=== PATIENT | male | born 1965 | race Caucasian/White ===

== ENCOUNTER → 2018-04-10 | Outpatient (CLI) | payer BC ==
[2018-04-10 18:11] LABS: BASOPHILS ABSOLUTE AUTO 0.05 K/mm3 (0.00-0.23); BASOPHILS PERCENT AUTO 1 % (0-2); EOSINOPHILS ABSOLUTE AUTO 0.12 K/mm3 (0.00-0.68); EOSINOPHILS PERCENT AUTO 2 % (0-6); Hematocrit 48.9 % (37.0-53.0); Hemoglobin 15.6 g/dL (13.5-17.5); IMMATURE GRAN ABSOLUTE AUTO 0.01 K/mm3 (0.00-0.10); IMMATURE GRAN PERCENT AUTO 0 % (0-1); LYMPHOCYTES ABSOLUTE AUTO 2.48 K/mm3 (0.84-5.20); LYMPHOCYTES PERCENT AUTO 31 % (21-46); MONOCYTES ABSOLUTE AUTO 0.56 K/mm3 (0.16-1.47); MONOCYTES PERCENT AUTO 7 % (4-13); Mean Corpuscular HGB 27.8 pg (26.0-34.0); Mean Corpuscular HGB Conc 31.9 g/dL (31.5-36.5); Mean Corpuscular Volume 87 fL (80-100); Mean Platelet Volume 10.1 fL (9.1-12.4); NEUTROPHILS ABSOLUTE AUTO 4.76 K/mm3 (1.96-9.15); NEUTROPHILS PERCENT AUTO 60 % (41-73); Platelet Count 255 K/mm3 (150-400); RDW Coefficient Variation 13.2 % (11.7-14.2); RDW Standard Deviation 42.6 fL (35.1-46.3); Red Blood Cell Count 5.61 M/mm3 (4.30-5.90); White Blood Cell Count 7.98 K/mm3 (4.00-11.30)
[2018-04-10 18:47] LABS: Albumin/Globulin Ratio 1.1 (0.8-1.8); Alk Phos 101 U/L (50-136); Anion Gap 8 mmol/L (6-16); Aspartate Aminotrans (AST/SGOT 20 U/L (12-37); Bilirubin, Total 0.5 mg/dL (0.1-1.0); Blood Urea Nitrogen 11 mg/dL (8-24); CHOL/HDL RATIO 7.8; CO2, Blood 28 mmol/L (21-32); Chloride, Blood 107 mmol/L (98-108); Cholesterol 250 mg/dL (50-200); Free Thyroxine 1.03 ng/dL (0.70-1.60); Globulin, Blood 3.5 g/dL (2.2-4.0); Glucose, Blood 106 mg/dL (70-99); HDL Cholesterol 32 mg/dL (>39); LDL/HDL RATIO 5.8; Low Density Lipoprotein Chol 185 mg/dL (0-110); Potassium, Blood 4.3 mmol/L (3.5-5.5); Sodium, Blood 143 mmol/L (136-145); Total Protein, Blood 7.5 g/dL (6.4-8.2); Triglycerides 163 mg/dL (30-160); Very Low Density Lipoprot Chol 32 mg/dL (6-32)
[2018-04-10 18:57] LABS: Alanine Aminotransfer (ALT/SGP 33 U/L (12-78); Bun/Creatinine Ratio 14.3 (12.0-20.0); Creatinine, Blood 0.77 mg/dL (0.60-1.20); Glomerular Filtration Rate >60 (60-); PSA, %Free 18.5 %
== END ==
LOC: LAB SHORT 12:11
PROVIDERS: Nurse Practitioner Adult Health
DX: Z12.5 Encounter for screening for malignant neoplasm of prostate (principal); E01.0 Iodine-deficiency related diffuse (endemic) goiter; E11.40 Type 2 diabetes mellitus with diabetic neuropathy, unspecified; E11.65 Type 2 diabetes mellitus with hyperglycemia; E78.5 Hyperlipidemia, unspecified; R22.1 Localized swelling, mass and lump, neck
CPT/HCPCS: 80053; 80061; 84153; 84154; 84439; 84443; 85025

== ENCOUNTER → 2018-04-20 | Outpatient (CLI) | payer BC | END | disposition home or self-care (01) | LOC: LAB SHORT 13:40 → LAB 13:40 | DX: K21.9 Gastro-esophageal reflux disease without esophagitis (principal) | CPT/HCPCS: 87338 ==

== ENCOUNTER → 2020-09-05 | Outpatient (CLI) | payer BC ==
[~2020-09-05] MED LIST: ATOR20 PO; METF500 PO; Norco 5-325 Ta1 EACH PO; OMEP20ER PO
[2020-09-05 14:36] LABS: BASOPHILS ABSOLUTE AUTO 0.07 K/mm3 (0.00-0.23); BASOPHILS PERCENT AUTO 1 % (0-2); EOSINOPHILS ABSOLUTE AUTO 0.16 K/mm3 (0.00-0.68); EOSINOPHILS PERCENT AUTO 2 % (0-6); Hematocrit 44.3 % (37.0-53.0); Hemoglobin 14.7 g/dL (13.5-17.5); IMMATURE GRAN ABSOLUTE AUTO 0.02 K/mm3 (0.00-0.10); IMMATURE GRAN PERCENT AUTO 0 % (0-1); LYMPHOCYTES ABSOLUTE AUTO 2.72 K/mm3 (0.84-5.20); LYMPHOCYTES PERCENT AUTO 25 % (21-46); MONOCYTES ABSOLUTE AUTO 0.83 K/mm3 (0.16-1.47); MONOCYTES PERCENT AUTO 8 % (4-13); Mean Corpuscular HGB 26.5 pg (26.0-34.0); Mean Corpuscular HGB Conc 33.2 g/dL (31.5-36.5); Mean Corpuscular Volume 80 fL (80-100); Mean Platelet Volume 9.7 fL (9.1-12.4); NEUTROPHILS ABSOLUTE AUTO 6.97 K/mm3 (1.96-9.15); NEUTROPHILS PERCENT AUTO 65 % (41-73); Platelet Count 337 K/mm3 (150-400); RDW Coefficient Variation 13.8 % (11.7-14.2); RDW Standard Deviation 39.9 fL (35.1-46.3); Red Blood Cell Count 5.54 M/mm3 (4.30-5.90); White Blood Cell Count 10.77 K/mm3 (4.00-11.30)
[2020-09-05 14:45] LABS: Alanine Aminotransfer (ALT/SGP 28 U/L (12-78); Albumin, Blood 3.9 g/dL (3.4-5.0); Alk Phos 113 U/L (40-126); Anion Gap 10 mmol/L (6-16); Aspartate Aminotrans (AST/SGOT 17 U/L (12-37); Bilirubin, Total 0.5 mg/dL (0.1-1.0); Blood Urea Nitrogen 15 mg/dL (8-24); CO2, Blood 27 mmol/L (21-32); Calcium, Blood 9.2 mg/dL (8.5-10.1); Chloride, Blood 101 mmol/L (98-108); Creatinine, Blood 0.79 mg/dL (0.60-1.20); Globulin, Blood 4.1 g/dL (2.2-4.0); Glomerular Filtration Rate >60 (60-); Glucose, Blood 102 mg/dL (70-99); Potassium, Blood 3.8 mmol/L (3.5-5.5); Sodium, Blood 138 mmol/L (136-145)
== END | disposition home or self-care (01) ==
LOC: LAB SHORT 14:29 → PLD 14:29
PROVIDERS: Physician Assistant
DX: R10.32 Left lower quadrant pain (principal)
CPT/HCPCS: 80053; 85025

== ENCOUNTER 2020-09-26 12:22 | Inpatient (IN) | payer BC ==
[~2020-09-26] VITALS: Ht 167.6 cm; Wt 97.4 kg
[2020-09-26] MEDS ORDERED: ATOR20 PO (12:57)
[2020-09-26] MEDS ORDERED: METF500 PO (12:57)
[2020-09-26] MEDS ORDERED: OMEP20ER PO (12:57)
[2020-09-26 13:03] LABS: BASOPHILS ABSOLUTE AUTO 0.08 K/mm3 (0.00-0.23); BASOPHILS PERCENT AUTO 1 % (0-2); EOSINOPHILS ABSOLUTE AUTO 0.06 K/mm3 (0.00-0.68); EOSINOPHILS PERCENT AUTO 0 % (0-6); Hematocrit 49.8 % (37.0-53.0); Hemoglobin 15.9 g/dL (13.5-17.5); IMMATURE GRAN ABSOLUTE AUTO 0.05 K/mm3 (0.00-0.10); IMMATURE GRAN PERCENT AUTO 0 % (0-1); LYMPHOCYTES ABSOLUTE AUTO 2.69 K/mm3 (0.84-5.20); LYMPHOCYTES PERCENT AUTO 17 % (21-46); MONOCYTES ABSOLUTE AUTO 1.37 K/mm3 (0.16-1.47); MONOCYTES PERCENT AUTO 9 % (4-13); Mean Corpuscular HGB 25.7 pg (26.0-34.0); Mean Corpuscular HGB Conc 31.9 g/dL (31.5-36.5); Mean Corpuscular Volume 81 fL (80-100); Mean Platelet Volume 9.3 fL (9.1-12.4); NEUTROPHILS ABSOLUTE AUTO 11.79 K/mm3 (1.96-9.15); NEUTROPHILS PERCENT AUTO 74 % (41-73); Platelet Count 466 K/mm3 (150-400); RDW Coefficient Variation 14.2 % (11.7-14.2); RDW Standard Deviation 41.1 fL (35.1-46.3); Red Blood Cell Count 6.19 M/mm3 (4.30-5.90); White Blood Cell Count 16.04 K/mm3 (4.00-11.30)
[2020-09-26 13:24] LABS: Alanine Aminotransfer (ALT/SGP 37 U/L (12-78); Albumin, Blood 3.7 g/dL (3.4-5.0); Albumin/Globulin Ratio 0.8 (0.8-1.8); Alk Phos 131 U/L (50-136); Anion Gap 8 mmol/L (6-16); Aspartate Aminotrans (AST/SGOT 23 U/L (12-37); Bilirubin, Total 0.8 mg/dL (0.1-1.0); Blood Urea Nitrogen 28 mg/dL (8-24); CO2, Blood 29 mmol/L (21-32); Calcium, Blood 10.3 mg/dL (8.5-10.1); Chloride, Blood 100 mmol/L (98-108); Creatinine, Blood 0.88 mg/dL (0.60-1.20); Globulin, Blood 4.5 g/dL (2.2-4.0); Glomerular Filtration Rate >60 (60-); Glucose, Blood 159 mg/dL (70-99); Potassium, Blood 3.9 mmol/L (3.5-5.5); Sodium, Blood 137 mmol/L (136-145); Total Protein, Blood 8.2 g/dL (6.4-8.2)
--- NOTE | 2020-09-27 04:29 | NUR ---
SHIFT SUMMARY AA0X4, NO ACUTE CHANGES SINCE ARRIVAL TO UNIT. PT RESTING IN BED DENIES PAIN AND NAUSEA. NPO SINCE ARRIVAL FOR PLANNED PROCEDURE TODAY. NG TUBE PATENT AND DRAINING WITH MINMAL BROWN OUTPUT. PTS WILL BE HERE IN THE AM TO HELP WITH UNDERSTANDING SURGICAL PROCEDURES.
[2020-09-27 04:48] LABS: Influenza A, PCR Negative (NEGATIVE); Influenza B, PCR Negative (NEGATIVE); Resp Syncytial Virus, PCR Negative (NEGATIVE); SARS-Cov-2 (COVID-19) PCR, MMC Negative (NEGATIVE)
[2020-09-27 05:14] LABS: BASOPHILS ABSOLUTE AUTO 0.09 K/mm3 (0.00-0.23); BASOPHILS PERCENT AUTO 1 % (0-2); EOSINOPHILS ABSOLUTE AUTO 0.06 K/mm3 (0.00-0.68); EOSINOPHILS PERCENT AUTO 1 % (0-6); Hematocrit 45.9 % (37.0-53.0); Hemoglobin 14.5 g/dL (13.5-17.5); IMMATURE GRAN ABSOLUTE AUTO 0.02 K/mm3 (0.00-0.10); IMMATURE GRAN PERCENT AUTO 0 % (0-1); LYMPHOCYTES ABSOLUTE AUTO 1.44 K/mm3 (0.84-5.20); LYMPHOCYTES PERCENT AUTO 15 % (21-46); MONOCYTES ABSOLUTE AUTO 0.91 K/mm3 (0.16-1.47); MONOCYTES PERCENT AUTO 9 % (4-13); Mean Corpuscular HGB 25.8 pg (26.0-34.0); Mean Corpuscular HGB Conc 31.6 g/dL (31.5-36.5); Mean Corpuscular Volume 82 fL (80-100); Mean Platelet Volume 9.4 fL (9.1-12.4); NEUTROPHILS ABSOLUTE AUTO 7.12 K/mm3 (1.96-9.15); NEUTROPHILS PERCENT AUTO 74 % (41-73); Platelet Count 359 K/mm3 (150-400); RDW Coefficient Variation 14.3 % (11.7-14.2); RDW Standard Deviation 42.6 fL (35.1-46.3); Red Blood Cell Count 5.61 M/mm3 (4.30-5.90); White Blood Cell Count 9.64 K/mm3 (4.00-11.30)
[2020-09-27 05:45] LABS: Anion Gap 6 mmol/L (6-16); Blood Urea Nitrogen 21 mg/dL (8-24); Bun/Creatinine Ratio 23.8 (12.0-20.0); CO2, Blood 31 mmol/L (21-32); Calcium, Blood 8.9 mg/dL (8.5-10.1); Chloride, Blood 103 mmol/L (98-108); Creatinine, Blood 0.88 mg/dL (0.60-1.20); Glomerular Filtration Rate >60 (60-); Glucose, Blood 125 mg/dL (70-99); Potassium, Blood 3.5 mmol/L (3.5-5.5); Sodium, Blood 140 mmol/L (136-145)
--- NOTE | 2020-09-27 07:57 | NUR ---
DR. QUIROZ HERE TO SEE PT, PT TAKEN TO THE OR.
--- NOTE | 2020-09-27 09:22 | NUR ---
09/27/20 0922 Vineet Red PATIENT ON SCHEDULED ANTIBIOTICS
--- NOTE | 2020-09-27 13:00 | NUR ---
ARRIVED FROM PACU AT 1250 RECIEVED REPORT FROM ALISON AT 1230. PT ARRIVED FROM PACU AT 1250. A0X4. PODO FOR COLECTOMY SIGMOID. OSTOMY IS BEEF RED WITH GAS VERY MINIMAL SANGUENOUS OUTPUT. PT IS HYPERTENSIVE. NG TUBE INTACT IN LOW INT SUCT. MIDLINE DRESSING W/DANY COMPRESSED W/ SMALL SANGUA DRAINAGE. PEOPLES IN PLACED W/ DARK YELLOW URINE. PT REPORTS MOD PAIN. FIRE SUPPORT SPECIALIST FOR PAIN MNGMNT. SEE EMR FOR ORDER. DIET IS NPO. IS AT BEDSIDE. PT DENIES CHEST PAIN/PRESSURE. PT'S DENIES SOB. 2L 02 ON N/C WITH OVER 95% SATURATION. PT DENIES N/T.
--- NOTE | 2020-09-27 19:21 | NUR ---
SHIFT SUMMARY PODO FOR COLECTOMY. PT IS NPO BUT OK FOR ICE CHIPS, BHAVYA IT WELL DENIES N/V. NG TUBE IN PLACED ON LOW INT SUCTION W/ AN OUTPUT OF 350ML DARK GREEN. PEOPLES IN PLACED W/ AQEQUATE URINE OUTPUT. OSTOMY IS BEEFY RED, VERY MINIMAL OUTPUT AND PASSING FLATUS. PT ABD HAS DANY IN MIDLINE COMPRESSED AND INTACT W/ SMALL SEROSAN DRAINAGE. PAIN MANAGED W/ GRAPPLER DILAUDID, PHYLLIS BIOX ORDER IS IN PLACED, CALLED RESP THERAPY. O2 AT 96% W/ 2L OXYGEN DENIES SOB AND CHESTPAIN. PT HAD A HARD TIME EXPRESSING HIMSELF, AT BEDSIDE TO HELP. CALL LIGHT WITHIN REACHED.
[2020-09-28 04:54] LABS: BASOPHILS ABSOLUTE AUTO 0.04 K/mm3 (0.00-0.23); BASOPHILS PERCENT AUTO 0 % (0-2); EOSINOPHILS ABSOLUTE AUTO 0.04 K/mm3 (0.00-0.68); EOSINOPHILS PERCENT AUTO 0 % (0-6); Hematocrit 42.4 % (37.0-53.0); Hemoglobin 13.2 g/dL (13.5-17.5); IMMATURE GRAN ABSOLUTE AUTO 0.04 K/mm3 (0.00-0.10); IMMATURE GRAN PERCENT AUTO 0 % (0-1); LYMPHOCYTES ABSOLUTE AUTO 2.53 K/mm3 (0.84-5.20); LYMPHOCYTES PERCENT AUTO 20 % (21-46); MONOCYTES ABSOLUTE AUTO 1.59 K/mm3 (0.16-1.47); MONOCYTES PERCENT AUTO 13 % (4-13); Mean Corpuscular HGB 26.5 pg (26.0-34.0); Mean Corpuscular HGB Conc 31.1 g/dL (31.5-36.5); Mean Corpuscular Volume 85 fL (80-100); Mean Platelet Volume 9.6 fL (9.1-12.4); NEUTROPHILS ABSOLUTE AUTO 8.25 K/mm3 (1.96-9.15); NEUTROPHILS PERCENT AUTO 66 % (41-73); Platelet Count 326 K/mm3 (150-400); RDW Coefficient Variation 14.4 % (11.7-14.2); RDW Standard Deviation 44.3 fL (35.1-46.3); Red Blood Cell Count 4.99 M/mm3 (4.30-5.90); White Blood Cell Count 12.49 K/mm3 (4.00-11.30)
[2020-09-28 05:19] LABS: Anion Gap 3 mmol/L (6-16); Blood Urea Nitrogen 21 mg/dL (8-24); Bun/Creatinine Ratio 20.6 (12.0-20.0); CO2, Blood 36 mmol/L (21-32); Calcium, Blood 8.6 mg/dL (8.5-10.1); Chloride, Blood 102 mmol/L (98-108); Creatinine, Blood 1.02 mg/dL (0.60-1.20); Glomerular Filtration Rate >60 (60-); Glucose, Blood 127 mg/dL (70-99); Potassium, Blood 4.2 mmol/L (3.5-5.5); Sodium, Blood 141 mmol/L (136-145)
--- NOTE | 2020-09-28 06:19 | NUR ---
SUMMARY PT REPOSITIONING SELF,USING IS. NO C/O NAUSEA. USES COMPUTER INFORMATION SYSTEMS INSTRUCTOR. AT BEDSIDE.
--- NOTE | 2020-09-28 19:58 | NUR ---
SHIFT SUMMARY PT AOX4. BHAVYA ICE CHIPS DENIES N/V. VSS. PT DENIES CP/PRESSURE AND SOB. WEAN O2, HE IS ON RA, SAT MORE THAN 95%. NG TUBE INTACT AND SUCTIONING LOW INT. DRAIN LOOKS COMPLIANCE COORDINATOR GREEN COMPARED YESTERDAY. PT GOT UP IN CHAIR AND WALK IN ROOM ONCE TODAY. PEOPLES WAS TAKEN OUT THIS MORNING W/ 500ML OUTPUT AND ABLE TO VOID, URINAL OUTPUT OF 500ML, DENIES PAIN/DISCOMFORT WHEN URINATING. PT HAS OSTOMY W/AN OUTPUT OF 400ML. MID ABD DANY DRESSING HAS SANGENOUS DRAINAGE, HAD A LITTLE MORE DRAINAGE AT THE END OF SHIFT. DRESSING CHANGED W/ PEEWEE ENRIQUEZ. PAIN MANAGED W/ PRODUCT MARKETING CONSULTANT- WITH PT MINIMAL USE. ENC DEEP BREATH AND USE OF I/S. CALL LIGHT W/IN REACH.
--- NOTE | 2020-09-29 06:17 | NUR ---
SHIFT SUMMARY POD 2 SIGMOID COLECTOMY WITH OSTOMY. AA0X4. PT REPORTS MINIMAL PAIN, MANAGED WELL WITH TAXI DRIVER SUPERVISOR PUMP. DRESSING CHANGED AT START OF SHIFT. UNABLE TO FORM SEAL. SMALL AMOUNT SANGUINOUS DRAINAGE ON DRESSING AT START OF SHIFT, ALSO PRESENT AT END OF SHIFT ON NEW DRESSING. CHANGED OSTOMY BAG ONCE, UNABLE TO MEASURE, BAG WAS HALF FUL WITH FORMED/LOOSE BROWN STOOL. SMALL AMOUNT OF RED AND CLOTS IN WITH STOOL. NG TUBE LIGHT YELLOW/ GREEN. PATENT AND DRAINING. PT UP TO CHAIR AT BEDSIDE WITH 1 ASSISST. VOIDING WELL DURING NIGHT, USING URINAL.
--- NOTE | 2020-09-29 08:57 | NUR ---
DR WALL HERE TO SEE PT.
--- NOTE | 2020-09-29 09:15 | NUR ---
DR QUIROZ HERE TO SEE PT.
--- NOTE | 2020-09-29 16:35 | NUR ---
SHIFT SUMMARY PT NPO. PT HAS NGT IN PLACE. PT BEEN GIVEN ICE CHIPS AND POPSCICLES PER DR QUIROZ. PT HAVING SOFT BROWN STOOL OUT OF OSTOMY. NGT TO LIS. PT BEEN ASSISTED WITH ADL'S PRN. PT USING COMMUNITY SERVICE OFFICER COORDINATOR FOR PAIN. PT EDUCATED ON EMPTYING OSTOMY. PT BEEN PLEASANT AND COOPERATIVE. PT BEEN MOVING SELF IN BED.
[2020-09-30 05:32] LABS: BASOPHILS ABSOLUTE AUTO 0.05 K/mm3 (0.00-0.23); BASOPHILS PERCENT AUTO 1 % (0-2); EOSINOPHILS PERCENT AUTO 2 % (0-6); Hematocrit 38.4 % (37.0-53.0); Hemoglobin 12.2 g/dL (13.5-17.5); IMMATURE GRAN ABSOLUTE AUTO 0.04 K/mm3 (0.00-0.10); IMMATURE GRAN PERCENT AUTO 0 % (0-1); LYMPHOCYTES ABSOLUTE AUTO 1.59 K/mm3 (0.84-5.20); LYMPHOCYTES PERCENT AUTO 16 % (21-46); MONOCYTES ABSOLUTE AUTO 0.77 K/mm3 (0.16-1.47); MONOCYTES PERCENT AUTO 8 % (4-13); Mean Corpuscular HGB 26.6 pg (26.0-34.0); Mean Corpuscular HGB Conc 31.8 g/dL (31.5-36.5); Mean Corpuscular Volume 84 fL (80-100); Mean Platelet Volume 9.6 fL (9.1-12.4); NEUTROPHILS ABSOLUTE AUTO 7.36 K/mm3 (1.96-9.15); NEUTROPHILS PERCENT AUTO 74 % (41-73); Platelet Count 264 K/mm3 (150-400); RDW Coefficient Variation 13.6 % (11.7-14.2); RDW Standard Deviation 41.4 fL (35.1-46.3); Red Blood Cell Count 4.59 M/mm3 (4.30-5.90); White Blood Cell Count 10.01 K/mm3 (4.00-11.30)
[2020-09-30 05:58] LABS: Albumin, Blood 2.8 g/dL (3.4-5.0); Anion Gap 8 mmol/L (6-16); Blood Urea Nitrogen 14 mg/dL (8-24); Bun/Creatinine Ratio 21.9 (12.0-20.0); CO2, Blood 27 mmol/L (21-32); Calcium, Blood 8.8 mg/dL (8.5-10.1); Chloride, Blood 106 mmol/L (98-108); Creatinine, Blood 0.64 mg/dL (0.60-1.20); Glomerular Filtration Rate >60 (60-); Glucose, Blood 77 mg/dL (70-99); Phosphorus, Blood 2.8 mg/dL (2.5-4.9); Potassium, Blood 3.4 mmol/L (3.5-5.5); Sodium, Blood 141 mmol/L (136-145)
--- NOTE | 2020-09-30 06:26 | NUR ---
SHIFT SUMMARY POD3 COLON OBSTRUCTION, A/O X4, VSS, NPO W/ SIPS&CHIPS AND TOLERATING THAT WELL, TRANSFERS WELL TO CHAIR, COLOSTOMY IN PLACE AND DRAINING SOFT BROWN STOOL. PAIN WELL CONTROLLED W/ ENROBING MACHINE FEEDER. CALL LIGHT IN REACH, WILL CONTINUE TO MONITOR AND REPORT TO ONCOMING DAY RN.
--- NOTE | 2020-09-30 08:43 | NUR ---
DR WALL HERE TO SEE PT.
--- NOTE | 2020-09-30 08:48 | NUR ---
DR QUIROZ RECENTLY BEEN TO SEE PT.
--- NOTE | 2020-09-30 13:37 | NUR ---
THERAPY WORKING WITH PT.
--- NOTE | 2020-09-30 15:15 | NUR ---
DRY MOLDER ASSISTED WITH PT WHILE THIS RN IN MEETING BETWEEN 14:00 AND 15:00.
--- NOTE | 2020-09-30 16:37 | NUR ---
PT RECENTLY HAD SHOWER PER DR QUIROZ REQ FROM THIS AM. PT'S DRESSING AND OSTOMY WERE REMOVED FOR SHOWER PER DR QUIROZ. NEW OSTOMY APPLIANCE AND DRESSING WERE PLACED WHILE DEMONSTRATING PT AND FAMILY HOW TO PLACE NEW OSTOMY APPLIANCE AND DRESSING. EDUCATION PROVIDED BY THIS RN. ENCOURAGED FAMILY TO WATCH VIDEO'S RECCOMENDED BY [employer]. TELEPATHIST INFORMED OF SIZE OF OSTOMY APPLIANCE PLACED WHICH WAS A 2 3/4. PT TOLERATED WELL. ASSISTED WITH OTHER ADL'S PRN.
--- NOTE | 2020-09-30 16:44 | NUR ---
SHIFT SUMMARY PT NGT OUT BY DR QUIROZ EARLIER TODAY. PT BEEN TOLERATING C.L. DIET. DR QUIROZ REQ TO HAVE PT TAKE SHOWER TODAY WITH DRESSING AND OSTOMY APPLIANCE REMOVED AND NEW OSTOMY APPLIANCE PLACED WELL DEMONSTRATING/EDUCATING FAMILY. ALSO PLACE NEW MEDIPORE DRESSING TO PT'S INCISION. PT DID HAVE SHOWER WITH FAMILY ASSIST WHILE EDUCATING FAMILY TO PAT WASH INCISION AREA FIRST WITH FRESH LINEN. NEW OSTOMY AND DRESSINGS PLACED WHILE EDUCATING FAMILY ON PLACING NEW APPLIANCE AND DRESSING. PT S.L.. PT BEEN ASSISTED WITH ADL'S PRN. PT WAS SEEN BY THERAPY BOTH (OT AND PT) TODAY.
--- NOTE | 2020-10-01 03:56 | NUR ---
SHIFT SUMMARY POD4 SIGMOID COLECTOMY W/ COLOSTOMY, A/O X4, VSS, TOLERATING CLEAR LIQUID DIET, REPORTS FEELING BETTER W/ NG TUBE REMOVED IN PRIOR SHIFT, AMBULATES WELL W/ 1 PERSON SBA, VOIDING IN URINAL AT BEDSIDE, PT DENIES PAIN W/ TYPE CUTTER DC'D DURING PRIOR SHIFT, PLAN TO DC ONCE CLEARED BY SURGEON PER HOSPITALIST NOTES. CALL LIGHT IN REACH, WILL CONTINUE TO MONITOR AND REPORT TO ONCOMING DAY RN.
--- NOTE | 2020-10-01 07:54 | NUR ---
dr purcell by to see pt diet adv to reg if pt can eva may go home by 1200 oob in chair pain 11/26
--- NOTE | 2020-10-01 09:00 | NUR ---
pt eva reg breakfast amb in hallway with fww
--- NOTE | 2020-10-01 10:05 | NUR ---
EMPTIED OSTOMY PT BACK IN BED PT HAD QUESTIONS RE HIS NEXT SURG
--- NOTE | 2020-10-01 12:08 | NUR ---
Pt resting in bed upon arrival. Pt reports current regimen is managing pain. Engaged in therapeutic listening as Pt expresses concerns regarding finances as he recovers. Discussed potential options to look into. Continued therapeutic listening and answered questions. Pt's lunch arrives and this RN ended visit. Pt expresses appreciation of visit. Spoke with Bedside RN Eduarda and discussed case. Spoke with Caremanager Charley and relayed Pt's concerns. Page reports discussing concerns and providing list of resources and ideas to Pt's spouse. Palliative Care will remain available.
[2020-10-01] MEDS ORDERED: Norco 5-325 Ta1 EACH PO (13:31)
== END 2020-10-01 15:20 | disposition home or self-care (01) | DRG 330 ==
LOC: ER 12:22 → SURS 18:26
PROVIDERS: Family Medicine; Physician Assistant; Surgery; ADMIT Internal Medicine
PROC: 0DTN0ZZ Resection of Sigmoid Colon, Open Approach (ICD-10-PCS; principal; 2020-09-27 08:00)
PROC: 0D1M0Z4 Bypass Descending Colon to Cutaneous, Open Approach (ICD-10-PCS; 2020-09-27 08:00)
DX: C18.7 Malignant neoplasm of sigmoid colon (principal); C18.9 Malignant neoplasm of colon, unspecified; E66.01 Morbid (severe) obesity due to excess calories; K21.9 Gastro-esophageal reflux disease without esophagitis; E11.9 Type 2 diabetes mellitus without complications; Z20.828 Contact with and (suspected) exposure to other viral communicable diseases; I10 Essential (primary) hypertension; F17.220 Nicotine dependence, chewing tobacco, uncomplicated; Z68.39 Body mass index [BMI] 39.0-39.9, adult; E86.0 Dehydration; Z79.84 Long term (current) use of oral hypoglycemic drugs; E87.6 Hypokalemia
CPT/HCPCS: 0241U; 36415; 74018; 74177; 80048; 80053; 80069; 82947; 83690; 85025; 86850; 86900; 86901; 88309; 93005; 93010; 96361; 96365-59; 96375; 97116; 97162; 97165; 97530; 97535; 99285-25; A9270-GY; J0330; J1100; J1170; J1885; J2250; J2405; J2543; J2704; J3010; J3480; J7030; J7050; J7120; Q9967

== ENCOUNTER 2020-11-11 07:02 | Day surgery (SDC) | payer BC, OTHER ==
[~2020-11-11] VITALS: Ht 167.6 cm; Wt 92.4 kg
== END 2020-11-11 22:50 | disposition home or self-care (01) ==
LOC: ORSCMMR 07:02 → ORD 08:30 → ORSCMMR 08:30
DX: C18.7 Malignant neoplasm of sigmoid colon (principal); E11.9 Type 2 diabetes mellitus without complications; K21.9 Gastro-esophageal reflux disease without esophagitis; Z87.891 Personal history of nicotine dependence; Z79.899 Other long term (current) drug therapy; Z79.84 Long term (current) use of oral hypoglycemic drugs
CPT/HCPCS: 77001; 82947; C1788; J0690; J1100; J1642; J1885; J2250; J2405; J2704; J3010; J7120

== ENCOUNTER 2021-03-04 20:03 | Emergency (ER) | payer OTHER ==
[~2021-03-04] VITALS: Ht 167.6 cm; Wt 97.1 kg
[2021-03-04 21:10] LABS: BASOPHILS ABSOLUTE AUTO 0.06 K/mm3 (0.00-0.23); BASOPHILS PERCENT AUTO 1 % (0-2); EOSINOPHILS ABSOLUTE AUTO 0.07 K/mm3 (0.00-0.68); EOSINOPHILS PERCENT AUTO 1 % (0-6); Hematocrit 37.5 % (37.0-53.0); Hemoglobin 12.1 g/dL (13.5-17.5); IMMATURE GRAN ABSOLUTE AUTO 0.02 K/mm3 (0.00-0.10); IMMATURE GRAN PERCENT AUTO 0 % (0-1); LYMPHOCYTES ABSOLUTE AUTO 2.61 K/mm3 (0.84-5.20); LYMPHOCYTES PERCENT AUTO 48 % (21-46); MONOCYTES ABSOLUTE AUTO 0.75 K/mm3 (0.16-1.47); MONOCYTES PERCENT AUTO 14 % (4-13); Mean Corpuscular HGB 26.4 pg (26.0-34.0); Mean Corpuscular HGB Conc 32.3 g/dL (31.5-36.5); Mean Corpuscular Volume 82 fL (80-100); Mean Platelet Volume 9.3 fL (9.1-12.4); NEUTROPHILS ABSOLUTE AUTO 1.95 K/mm3 (1.96-9.15); NEUTROPHILS PERCENT AUTO 36 % (41-73); Platelet Count 155 K/mm3 (150-400); RDW Coefficient Variation 17.4 % (11.7-14.2); RDW Standard Deviation 49.6 fL (35.1-46.3); Red Blood Cell Count 4.59 M/mm3 (4.30-5.90); White Blood Cell Count 5.46 K/mm3 (4.00-11.30)
[2021-03-04 21:28] LABS: Alanine Aminotransfer (ALT/SGP 35 U/L (12-78); Albumin, Blood 3.7 g/dL (3.4-5.0); Albumin/Globulin Ratio 0.9 (0.8-1.8); Alk Phos 155 U/L (50-136); Anion Gap 4 mmol/L (6-16); Aspartate Aminotrans (AST/SGOT 27 U/L (12-37); Bilirubin, Total 0.2 mg/dL (0.1-1.0); Blood Urea Nitrogen 11 mg/dL (8-24); Bun/Creatinine Ratio 13.8 (12.0-20.0); CO2, Blood 28 mmol/L (21-32); Calcium, Blood 8.8 mg/dL (8.5-10.1); Chloride, Blood 104 mmol/L (98-108); Globulin, Blood 3.9 g/dL (2.2-4.0); Glomerular Filtration Rate >60 (60-); Glucose, Blood 189 mg/dL (70-99); Potassium, Blood 3.4 mmol/L (3.5-5.5); Sodium, Blood 136 mmol/L (136-145); Total Protein, Blood 7.6 g/dL (6.4-8.2)
== END 2021-03-05 01:16 | disposition home or self-care (01) ==
LOC: ER 20:03
PROVIDERS: Physician Assistant
DX: K92.2 Gastrointestinal hemorrhage, unspecified (principal); E11.9 Type 2 diabetes mellitus without complications; Z79.84 Long term (current) use of oral hypoglycemic drugs; Z79.899 Other long term (current) drug therapy; Z87.891 Personal history of nicotine dependence
CPT/HCPCS: 36415; 74177; 80053; 85025; 86850; 86900; 86901; 99284-25; Q9967

== ENCOUNTER 2022-04-01 09:51 | Day surgery (SDC) | payer OTHER ==
[~2022-04-01] VITALS: Ht 167.6 cm; Wt 96.8 kg
--- NOTE | 2022-04-01 13:02 | NUR ---
04/01/22 1302 ARIA RODRIGUEZ 1220 RN CHECK ON PT WHILE GETTING DRESSED- PT SAID HE WAS DOING FINE JUST NEEDED A FEW MORE MINUTES, 1222 RN CAME TO CHECK ON PT- PT ON FLOOR WITH HEAD LEANING TOWARDS CUPBOARD. RN ASK PT IF HE IS OK- PT SAID HE WAS TRYING TO PUT SHOES ON AND FELL. RN ASKED PT IF HE WAS HURT PT SAID NO MULTIPLE STAFF AT BEDSIDE TO ASSIST. MALE STAFF ASSIST PT TO SITTING ON SIDE OF BED. 1223 BP 170/105, HR 99 RR 16. PT SAID I WAS TRYING TO PUT SHOES ON AND THEN I FELL, OH THATS ALRIGHT, I DO THAT ALL THE TIME AT HOME. RN ASKED PT IF HE USES WALKER OR CANE AT HOME PT SAID NO. PT DOESNT THINK HE HIT HIS HEAD PT SAID HE DOESNT HURT. DR QUIROZ NOTIFIED OF FALL AND AWARE, SAID IF PT FEELING OK ITS OK FOR PT TO DC 1231 BG 91 ON GLUCOMETER. PT BP 165/95, HR 75, RR 16. PT STATES HE FEELS OK GOING HOME. RN EDUCATED PT IF HE STARTS TO HAVE HEADACHE, ANY ACHES PAINS, DIZZINESS, LIGHTHEADEDNESS, BLURRED VISION AT HOME OR CONFUSION TO GO TO ER. PT VERALIZED UNDERSTANDING. RN TOLD PT TO FOLLOW UP WITH PCP REGARDING BALANCE ISSUES, PT VERBALIZED UNDERSTANDING. PT DC VIA WHEELCHAIR TO GO HOME WITH FAMILY
== END 2022-04-01 12:32 | disposition home or self-care (01) ==
LOC: ORSCSDS 09:51
PROVIDERS: Surgery
PROC: 0DBM8ZX Excision of Descending Colon, Via Natural or Artificial Opening Endoscopic, Diagnostic (ICD-10-PCS; principal; 2022-04-01 11:15)
PROC: 0DBP8ZX Excision of Rectum, Via Natural or Artificial Opening Endoscopic, Diagnostic (ICD-10-PCS; principal; 2022-04-01 11:15)
DX: Z85.038 Personal history of other malignant neoplasm of large intestine (principal); R97.0 Elevated carcinoembryonic antigen [CEA]; K62.1 Rectal polyp; K63.5 Polyp of colon; E11.9 Type 2 diabetes mellitus without complications; E78.5 Hyperlipidemia, unspecified; Z79.84 Long term (current) use of oral hypoglycemic drugs; F17.220 Nicotine dependence, chewing tobacco, uncomplicated; E66.01 Morbid (severe) obesity due to excess calories; Z68.35 Body mass index [BMI] 35.0-35.9, adult; Z79.899 Other long term (current) drug therapy
CPT/HCPCS: 82947; 88305; J2370; J2704; J7120

== ENCOUNTER → 2024-04-05 | Outpatient (CLI) | payer OTHER ==
[2024-04-05 17:04] LABS: BASOPHILS ABSOLUTE AUTO 0.08 K/mm3 (0.00-0.23); BASOPHILS PERCENT AUTO 1 % (0-2); EOSINOPHILS ABSOLUTE AUTO 0.17 K/mm3 (0.00-0.68); EOSINOPHILS PERCENT AUTO 3 % (0-6); Hematocrit 48.2 % (37.0-53.0); Hemoglobin 15.7 g/dL (13.5-17.5); IMMATURE GRAN ABSOLUTE AUTO 0.01 K/mm3 (0.00-0.10); IMMATURE GRAN PERCENT AUTO 0 % (0-1); LYMPHOCYTES ABSOLUTE AUTO 2.22 K/mm3 (0.84-5.20); LYMPHOCYTES PERCENT AUTO 35 % (21-46); MONOCYTES ABSOLUTE AUTO 0.48 K/mm3 (0.16-1.47); MONOCYTES PERCENT AUTO 8 % (4-13); Mean Corpuscular HGB 27.6 pg (26.0-34.0); Mean Corpuscular HGB Conc 32.6 g/dL (31.5-36.5); Mean Corpuscular Volume 85 fL (80-100); Mean Platelet Volume 10.5 fL (9.1-12.4); NEUTROPHILS ABSOLUTE AUTO 3.39 K/mm3 (1.96-9.15); NEUTROPHILS PERCENT AUTO 53 % (41-73); Platelet Count 224 K/mm3 (150-400); RDW Coefficient Variation 13.3 % (11.7-14.2); Red Blood Cell Count 5.68 M/mm3 (4.30-5.90); White Blood Cell Count 6.35 K/mm3 (4.00-11.30)
[2024-04-05 17:35] LABS: Alanine Aminotransfer (ALT/SGP 36 U/L (12-78); Albumin, Blood 4.2 g/dL (3.4-5.0); Albumin/Globulin Ratio 1.1 (0.8-1.8); Alk Phos 127 U/L (50-136); Anion Gap 7 mmol/L (3-11); Aspartate Aminotrans (AST/SGOT 20 U/L (12-37); Bilirubin, Total 0.5 mg/dL (0.1-1.0); Blood Urea Nitrogen 15 mg/dL (8-24); CHOL/HDL RATIO 4.8; CO2, Blood 27 mmol/L (21-32); Calcium, Blood 9.2 mg/dL (8.5-10.1); Chloride, Blood 108 mmol/L (98-108); Cholesterol 177 mg/dL (50-200); Creatinine, Blood 0.75 mg/dL (0.60-1.20); Globulin, Blood 3.7 g/dL (2.2-4.0); Glomerular Filtration Rate 105 (60-); Glucose, Blood 143 mg/dL (70-99); HDL Cholesterol 37 mg/dL (>39); Low Density Lipoprotein Chol 110 mg/dL (0-110); Potassium, Blood 3.9 mmol/L (3.5-5.5); Sodium, Blood 138 mmol/L (136-145); Total Protein, Blood 7.9 g/dL (6.4-8.2); Triglycerides 148 mg/dL (30-160); Very Low Density Lipoprot Chol 29 mg/dL (6-32)
[2024-04-05 17:42] LABS: Creatinine, Urine Random 41.6 mg/dL (27.00-270.00)
[2024-04-05 17:44] LABS: Microalb/Creat Ratio UR, Rand 101.923 mg/g (0.000-30.000); Microalbumin, Random Urine 42.4 mg/L (0.000-20.000)
== END ==
LOC: LAB SHORT 15:36 → LAB 15:36
PROVIDERS: Family Medicine
DX: E11.9 Type 2 diabetes mellitus without complications (principal); Z79.899 Other long term (current) drug therapy
CPT/HCPCS: 80053; 80061; 82043; 82570; 84443; 85025

== ENCOUNTER 2024-07-21 19:01 | Emergency (ER) | payer OTHER ==
[~2024-07-21] VITALS: Ht 172.7 cm; Wt 81.7 kg
[2024-07-21 19:30] LABS: BASOPHILS ABSOLUTE AUTO 0.09 K/mm3 (0.00-0.23); BASOPHILS PERCENT AUTO 1 % (0-2); EOSINOPHILS ABSOLUTE AUTO 0.28 K/mm3 (0.00-0.68); EOSINOPHILS PERCENT AUTO 3 % (0-6); Hematocrit 47.1 % (37.0-53.0); Hemoglobin 15.8 g/dL (13.5-17.5); IMMATURE GRAN ABSOLUTE AUTO 0.03 K/mm3 (0.00-0.10); IMMATURE GRAN PERCENT AUTO 0 % (0-1); LYMPHOCYTES ABSOLUTE AUTO 4.24 K/mm3 (0.84-5.20); LYMPHOCYTES PERCENT AUTO 40 % (21-46); MONOCYTES ABSOLUTE AUTO 0.66 K/mm3 (0.16-1.47); MONOCYTES PERCENT AUTO 6 % (4-13); Mean Corpuscular HGB 27.5 pg (26.0-34.0); Mean Corpuscular HGB Conc 33.5 g/dL (31.5-36.5); Mean Corpuscular Volume 82 fL (80-100); Mean Platelet Volume 9.7 fL (9.1-12.4); NEUTROPHILS ABSOLUTE AUTO 5.35 K/mm3 (1.96-9.15); NEUTROPHILS PERCENT AUTO 50 % (41-73); Platelet Count 264 K/mm3 (150-400); RDW Coefficient Variation 13.2 % (11.7-14.2); RDW Standard Deviation 39.2 fL (35.1-46.3); Red Blood Cell Count 5.74 M/mm3 (4.30-5.90); White Blood Cell Count 10.65 K/mm3 (4.00-11.30)
[2024-07-21 19:54] LABS: Albumin, Blood 4.1 g/dL (3.4-5.0); Albumin/Globulin Ratio 1.1 (0.8-1.8); Bilirubin, Total 0.5 mg/dL (0.1-1.0); Bun/Creatinine Ratio 10.1 (12.0-20.0); Calcium, Blood 9.2 mg/dL (8.5-10.1); Creatinine, Blood 0.69 mg/dL (0.60-1.20); Globulin, Blood 3.9 g/dL (2.2-4.0); Potassium, Blood 3.5 mmol/L (3.5-5.5)
[2024-07-21 22:30] VITALS: BP 168/80
== END 2024-07-21 22:42 | disposition home or self-care (01) ==
LOC: ER 19:01
PROVIDERS: Physician Assistant
DX: R19.7 Diarrhea, unspecified (principal); E11.9 Type 2 diabetes mellitus without complications; E78.5 Hyperlipidemia, unspecified; K21.9 Gastro-esophageal reflux disease without esophagitis; J44.9 Chronic obstructive pulmonary disease, unspecified; E66.9 Obesity, unspecified; Z93.3 Colostomy status; Z79.84 Long term (current) use of oral hypoglycemic drugs; Z79.899 Other long term (current) drug therapy; Z87.891 Personal history of nicotine dependence
CPT/HCPCS: 80053; 82272; 85025; 86850; 86900; 86901; 99284

== ENCOUNTER → 2025-05-07 | Outpatient (CLI) | payer OTHER ==
[2025-05-07 16:19] LABS: Creatinine, Urine Random 61.1 mg/dL (27.00-270.00); Microalb/Creat Ratio UR, Rand 24.55 mg/g (0.000-30.000); Microalbumin, Random Urine 15.0 mg/L (0.000-20.000)
[2025-05-07 19:01] LABS: BASOPHILS ABSOLUTE AUTO 0.09 K/mm3 (0.00-0.23); BASOPHILS PERCENT AUTO 1 % (0-2); EOSINOPHILS ABSOLUTE AUTO 0.17 K/mm3 (0.00-0.68); EOSINOPHILS PERCENT AUTO 2 % (0-6); Hematocrit 48.2 % (37.0-53.0); Hemoglobin 16.2 g/dL (13.5-17.5); IMMATURE GRAN ABSOLUTE AUTO 0.01 K/mm3 (0.00-0.10); IMMATURE GRAN PERCENT AUTO 0 % (0-1); LYMPHOCYTES ABSOLUTE AUTO 3.02 K/mm3 (0.84-5.20); LYMPHOCYTES PERCENT AUTO 36 % (21-46); MONOCYTES ABSOLUTE AUTO 0.69 K/mm3 (0.16-1.47); MONOCYTES PERCENT AUTO 8 % (4-13); Mean Corpuscular HGB Conc 33.6 g/dL (31.5-36.5); Mean Corpuscular Volume 84 fL (80-100); NEUTROPHILS ABSOLUTE AUTO 4.37 K/mm3 (1.96-9.15); NEUTROPHILS PERCENT AUTO 52 % (41-73); NRBC ABSOLUTE 0.00 K/mm3 (0.00-0.02); NRBC Auto 0.0 /100 WBC (0.0-0.2); Platelet Count 242 K/mm3 (150-400); RDW Coefficient Variation 13.1 % (11.7-14.2); RDW Standard Deviation 40.0 fL (35.1-46.3)
[2025-05-07 20:42] LABS: Alanine Aminotransfer (ALT/SGP 49 U/L (12-78); Albumin, Blood 4.3 g/dL (3.4-5.0); Albumin/Globulin Ratio 1.2 (0.8-1.8); Anion Gap 8 mmol/L (3-11); Aspartate Aminotrans (AST/SGOT 20 U/L (12-37); Bilirubin, Total 0.4 mg/dL (0.1-1.0); Blood Urea Nitrogen 12 mg/dL (8-24); CHOL/HDL RATIO 6.1; CO2, Blood 27 mmol/L (21-32); Calcium, Blood 8.9 mg/dL (8.5-10.1); Chloride, Blood 105 mmol/L (98-108); Cholesterol 201 mg/dL (50-200); Creatinine, Blood 0.85 mg/dL (0.60-1.20); Globulin, Blood 3.7 g/dL (2.2-4.0); Glucose, Blood 194 mg/dL (70-99); HDL Cholesterol 33 mg/dL (>39); LDL/HDL RATIO Unable to Calculate; Low Density Lipoprotein Chol Unable to Calculate mg/dL (0-110); Potassium, Blood 3.5 mmol/L (3.5-5.5); Sodium, Blood 136 mmol/L (136-145); Thyroid Stimulating Hormone 2.740 uIU/mL (0.360-4.800); Total Protein, Blood 8.0 g/dL (6.4-8.2); Triglycerides 630 mg/dL (30-160); Very Low Density Lipoprot Chol Unable to Calculate mg/dL (6-32)
[2025-05-07 21:32] LABS: LDL Direct Measurement 121 mg/dL (0-130)
== END ==
LOC: LAB SHORT 14:03 → LAB 14:03
PROVIDERS: Family Medicine
DX: E11.9 Type 2 diabetes mellitus without complications (principal); Z79.899 Other long term (current) drug therapy
CPT/HCPCS: 80053; 80061; 82043; 82306; 82570; 83721; 84443; 85025